=== PATIENT | male | born 1965 | race Caucasian/White ===

== ENCOUNTER 2018-11-30 08:41 | Outpatient (RCR) | payer MEDICAID, SELFPAY ==
[2018-11-30 09:23] VITALS: BP 163/90; PULSE 98; RESP 20; TEMP 36.5
--- NOTE | 2018-11-30 19:49 | PCM.CONHBO ---
(1) Chronic osteomyelitis involving ankle and foot Status: Chronic Current Visit: Yes Code(s): M86.679 - Other chronic osteomyelitis, unspecified ankle and foot (2) Type 2 diabetes mellitus Status: Acute Current Visit: Yes Code(s): E11.9 - Type 2 diabetes mellitus without complications (3) Diabetic foot ulcer associated with type 2 diabetes mellitus Status: Acute Current Visit: Yes Code(s): E11.621 - Type 2 diabetes mellitus with foot ulcer; L97.509 - Non-pressure chronic ulcer of other part of unspecified foot with unspecified severity History of Present Illness Presenting Chief Complaint: Hyperbaric oxygen consult for chronic refractory osteomyelitis right foot/ankle. Recurrent diabetic foot ulcer. The patient is a 53 year old M who [facility] the possibility of initiating hyperbaric oxygen therapy for treatment of chronic refractory osteomyelitis of his right foot and history of diabetic foot ulcer. Had been following up with his podiatry for wound care and had a 3-month hyperbaric oxygen treatment at [facility]. He had done well with hyperbaric oxygen however noted recurrence of his ulcer about 2 weeks ago and there is concern for refractory osteomyelitis. Plan is for repeat hyperbaric oxygen treatment to optimize wound healing. He did well with hyperbaric oxygen in the past. No vision/hearing concerns. He denies history of heart along disease. He also denies tobacco abuse. Past Medical History Chronic Problems Chronic osteomyelitis involving ankle and foot (Chronic) Allergies/Adverse Reactions: Allergies iodine Allergy (Verified 11/30/18 09:59) Other Home Medications: Ambulatory Orders Medication Instructions Recorded Amlodipine [Norvasc] 5 mg PO DAILY 11/30/18 Glimepiride [Amaryl] 4 mg PO TID 11/30/18 Losartan Potassium [Cozaar] 100 mg PO DAILY 11/30/18 Metformin HCl 500 mg PO TID 11/30/18 Smoking Status: Never smoker Review of Systems Constitutional: Denies: Anorexia, Chills, Fever Eyes: Denies: Blurred vision, Pain, Redness HEENT: Denies: Difficulty Swallowing Cardiovascular: Denies: Chest Pain, Chest Tightness Respiratory: Denies: Hemoptysis Gastrointestinal: Denies: Abdominal Pain, Hematemesis, Vomiting Genitourinary: Denies: Hematuria Skin: Denies: Jaundice - Physical Exam Vital Signs Temp Pulse Resp BP 97.7 F L 98 20 H 163/90 H 11/30/18 09:23 11/30/18 09:23 11/30/18 09:23 11/30/18 09:23 General: Alert, Oriented x3, Cooperative, No apparent distress HEENT: Atraumatic, Normocephalic Oral: Moist Mucosa Neck: Supple Lungs: Normal air movement Cardiovascular: Regular rate, Regular Rhythm, Normal S1, Normal S2 Abdomen: Soft, Non Tender, Obese Extremities: No cyanosis Skin: Ulcer/ Wound Wound Measurements and Assessment WC - Nurse 1 - General Ulcer Measurement Start: 11/30/18 09:20 Freq: Status: Active Protocol: Activity Type Activity Date Activity User E-Sign Co-Sign Detail Recorded Client Recorded Date Recorded By Document 11/30/18 09:23 RB [id number] 11/30/18 09:26 RB 11/30/18 09:23 Wound Center Nurse 1 [Ulcer Assessment] 1. R lateral foot -Combined with other wound No -Current Size (cm) - Length 2.9 -Current Size (cm) - Width 3.4 -Current Size (cm) - Depth 0.2 -Total Square Cm 9.86 -Photo Taken Yes -Tunneling No -Undermining/Tunneling Yes -Undermining/Tunneling Starts (O' 7 clock) -Undermining/Tunneling Ends (O'clock) 10 -Maximum Distance (cm) 0.2 -Circular Undermining No -Exudate Amt Small -Exudate Type Serosanguineous -Wound Margin Distinct, Outline Attached -Granulation Amt Medium (34-66%) -Granulation Quality [place] Red -Slough/Fibrin Yes -Necrosis Amt Small (1-33%) -Necrotic Tissue Type Adherent Slough -Structure Exposed N/A -Texture (Carri-wound Skin Appearance) Assessed Callus -Moisture (Carri-wound Skin Appearance Assessed ) -Color (Carri-wound Skin Appearance) Assessed -Temperature (Carri-wound Skin No Abnormality Appearance) (Pt Warm) -Tenderness on Palpation (Carri-wound No Skin Appearance) -Ulcer Cleansing Wound Cleanser -Foul Odor after Cleansing No -Anesthetic Used 4% Lidocaine Solution [Edema Assessment] -Lower Limb Edema Present Yes -Right Calf (cm) 43 -Right Ankle (cm) 28.5 -Left Calf (cm) 42 -Left Ankle (cm) 27 WC - Nurse 2 - General Ulcer CM Notes Start: 11/30/18 09:20 Freq: Status: Active Protocol: Activity Type Activity Date Activity User E-Sign Co-Sign Detail Recorded Client Recorded Date Recorded By Document 11/30/18 09:58 MW [id number] 11/30/18 10:10 MW 11/30/18 09:58 Wound Center Nurse 2 [Procedure/Treatment] 1. R lateral foot -Time 09:58 -Correct Patient Yes -Correct Side, Site, Position Yes -Correct Procedure Yes -Procedure Performed No -Wound/Ulcer Outcome Not Healed -Bleeding Controlled with NA [See Physician Procedure note for Specifics] Pain Scale: 0-10 Numeric [Pain] -Is Patient Pain Free? Yes Musculoskeletal: No Muscle Wasting Neurological: Cranial nerves II-XII grossly intact Psych/Mental Status: Normal Affect Assessment/Plan Active Problems Chronic osteomyelitis involving ankle and foot (Chronic) Type 2 diabetes mellitus (Acute) Diabetic foot ulcer associated with type 2 diabetes mellitus (Acute) DEANGELO ROMERO is an appropriate candidate for hyperbaric oxygen therapy. Hyperbaric Oxygen Therapy would be an essential adjunct in the resolution and treatment of this patient's presenting problem. This patient has sufficient physiologic and psychological stamina to undergo the rigors of hyperbaric oxygen therapy. As such, I recommend the following: Hyperbaric Oxygen Treatments at 2.0 CARMEN in 100% Oxygen for 90 minutes per treatment, for [40] treatments. I have discussed the possible benefits of hyperbaric oxygen therapy with this patient. I have also presented and described the risks, including: air gas embolism, pneumothorax, central nervous system and pulmonary oxygen toxicity, flash pulmonary edema, hypoglycemia, reversible visual refractive changes, ear and sinus sanjay-trauma, and confinement anxiety. The patient has verbalized understanding of these risks, and is still wanting to undergo hyperbaric oxygen therapy. The patient understands the significant time and transportation commitment involved in daily treatments of up to two hours duration and has stated that they are willing to commit to this therapy. Records requested from prior HBO facility. Patient states that he recently had imaging done. Last HBO session was in August.
--- NOTE | 2018-11-30 19:53 | HBO.CON.PC_ITS ---
(1) Chronic osteomyelitis involving ankle and foot Status: Chronic Current Visit: Yes Code(s): M86.679 - Other chronic osteomyelitis, unspecified ankle and foot (2) Type 2 diabetes mellitus Status: Acute Current Visit: Yes Code(s): E11.9 - Type 2 diabetes mellitus without complications (3) Diabetic foot ulcer associated with type 2 diabetes mellitus Status: Acute Current Visit: Yes Code(s): E11.621 - Type 2 diabetes mellitus with foot ulcer; L97.509 - Non-pressure chronic ulcer of other part of uns pecified foot with unspecified severity History of Present Illness Presenting Chief Complaint: Hyperbaric oxygen consult for chronic refractory osteomyelitis right foot/ankle. Recurrent diabetic foot ulcer. The patient is a 53 year old M who [facility] to evaluate the possibility of initiating hyperbaric oxygen therapy for treatment of chronic refractory osteomyelitis of his right foot and history of diabetic foot ulcer. Had been following up with his podiatry for wound care and had a 3- month hyperbaric oxygen treatment at [facility]. He had done well with hyperbaric oxygen however noted recurrence of his ulcer about 2 weeks ago and there is concern for refractory osteomyelitis. Plan is for repeat hyperbaric oxygen treatment to optimize wound healing. He did well with hyperbaric oxygen in the past. No vision/hearing concerns. He denies history of heart along disease. He also denies tobacco abuse. Past Medical History Chronic Problems Chronic osteomyelitis involving ankle and foot (Chronic) Allergies/Adverse Reactions: Allergies iodine Allergy (Verified 11/30/18 09:59) Other Home Medications: Ambulatory Orders Medication Instructions Recorded Amlodipine [Norvasc] 5 mg PO DAILY 11/30/18 Glimepiride [Amaryl] 4 mg PO TID 11/30/18 Losartan Potassium [Cozaar] 100 mg PO DAILY 11/30/18 Metformin HCl 500 mg PO TID 11/30/18 Smoking Status: Never smoker Review of Systems Constitutional: Denies: Anorexia, Chills, Fever Eyes: Denies: Blurred vision, Pain, Redness HEENT: Denies: Difficulty Swallowing Cardiovascular: Denies: Chest Pain, Chest Tightness Respiratory: Denies: Hemoptysis Gastrointestinal: Denies: Abdominal Pain, Hematemesis, Vomiting Genitourinary: Denies: Hematuria Skin: Denies: Jaundice - Physical Exam Vital Signs Temp Pulse Resp BP 97.7 F L 98 20 H 163/90 H 11/30/18 09:23 11/30/18 09:23 11/30/18 09:23 11/30/18 09:23 General: Alert, Oriented x3, Cooperative, No apparent distress HEENT: Atraumatic, Normocephalic Oral: Moist Mucosa Neck: Supple Lungs: Normal air movement Cardiovascular: Regular rate, Regular Rhythm, Normal S1, Normal S2 Abdomen: Soft, Non Tender, Obese Extremities: No cyanosis Skin: Ulcer/ Wound Wound Measurements and Assessment WC - Nurse 1 - General Ulcer Measurement Start: 11/30/18 09:20 Freq: Status: Active Protocol: Activity Type Activity Date Activity User E-Sign Co-Sign Detail Recorded Client Recorded Date Recorded By Document 11/30/18 09:23 RB [id number] 11/30/18 09:26 RB 11/30/18 09:23 Wound Center Nurse 1 [Ulcer Assessment] 1. R lateral foot -Combined with other wound No -Current Size (cm) - Length 2.9 -Current Size (cm) - Width 3.4 -Current Size (cm) - Depth 0.2 -Total Square Cm 9.86 -Photo Taken Yes -Tunneling No -Undermining/Tunneling Yes -Undermining/Tunneling Starts (O' 7 clock) -Undermining/Tunneling Ends (O'clock) 10 -Maximum Distance (cm) 0.2 -Circular Undermining No -Exudate Amt Small -Exudate Type Serosanguineous -Wound Margin Distinct, Outline Attached -Granulation Amt Medium (34-66%) -Granulation Quality [place] Red -Slough/Fibrin Yes -Necrosis Amt Small (1-33%) -Necrotic Tissue Type Adherent Slough -Structure Exposed N/A -Texture (Carri-wound Skin Appearance) Assessed Callus -Moisture (Carri-wound Skin Appearance Assessed ) -Color (Carri-wound Skin Appearance) Assessed -Temperature (Carri-wound Skin No Abnormality Appearance) (Pt Warm) -Tenderness on Palpation (Carri-wound No Skin Appearance) -Ulcer Cleansing Wound Cleanser -Foul Odor after Cleansing No -Anesthetic Used 4% Lidocaine Solution [Edema Assessment] -Lower Limb Edema Present Yes -Right Calf (cm) 43 -Right Ankle (cm) 28.5 -Left Calf (cm) 42 -Left Ankle (cm) 27 WC - Nurse 2 - General Ulcer CM Notes Start: 11/30/18 09:20 Freq: Status: Active Protocol: Activity Type Activity Date Activity User E-Sign Co-Sign Detail Recorded Client Recorded Date Recorded By Document 11/30/18 09:58 MW [id number] 11/30/18 10:10 MW 11/30/18 09:58 Wound Center Nurse 2 [Procedure/Treatment] 1. R lateral foot -Time 09:58 -Correct Patient Yes -Correct Side, Site, Position Yes -Correct Procedure Yes -Procedure Performed No -Wound/Ulcer Outcome Not Healed -Bleeding Controlled with NA [See Physician Procedure note for Specifics] Pain Scale: 0-10 Numeric [Pain] -Is Patient Pain Free? Yes Musculoskeletal: No Muscle Wasting Neurological: Cranial nerves II-XII grossly intact Psych/Mental Status: Normal Affect Assessment/Plan Active Problems Chronic osteomyelitis involving ankle and foot (Chronic) Type 2 diabetes mellitus (Acute) Diabetic foot ulcer associated with type 2 diabetes mellitus (Acute) DEANGELO ROMERO is an appropriate candidate for hyperbaric oxygen therapy. Hyperbaric Oxygen Therapy would be an essential adjunct in the resolution and treatment of this patient's presenting problem. This patient has sufficient physiologic and psychological stamina to undergo the rigors of hyperbaric oxygen therapy. As such, I recommend the following: Hyperbaric Oxygen Treatments at 2.0 CARMEN in 100% Oxygen for 90 minutes per treatment, for [40] treatments. I have discussed the possible benefits of hyperbaric oxygen therapy with this patient. I have also presented and described the risks, including: air gas embolism, pneumothorax, central nervous system and pulmonary oxygen toxicity, flash pulmonary edema, hypoglycemia, reversible visual refractive changes, ear and sinus sanjay-trauma, and confinement anxiety. The patient has verbalized understanding of these risks, and is still wanting to undergo hyperbaric oxygen therapy. The patient understands the significant time and transportation commitment involved in daily treatments of up to two hours duration and has stated that they are willing to commit to this therapy. Records requested from prior HBO facility. Patient states that he recently had imaging done. Last HBO session was in August.
== END 2018-12-15 23:59 ==
LOC: WC 08:41
PROVIDERS: Family Provider Family Medicine; PCP Family Medicine; Visit Provider Internal Medicine
DX: E11.621 Type 2 diabetes mellitus with foot ulcer (principal); E11.69 Type 2 diabetes mellitus with other specified complication; M86.671 Other chronic osteomyelitis, right ankle and foot; L97.519 Non-pressure chronic ulcer of other part of right foot with unspecified severity
CPT/HCPCS: 99203; G0463

== ENCOUNTER 2019-01-12 10:00 | Outpatient (RCR) | payer MEDICAID, SELFPAY ==
[2018-12-16 01:24] VITALS: BP 163/90; PULSE 98; RESP 20; TEMP 36.5
[2019-01-01 08:35] LABS: Bedside Glucose 175 mg/dL (70-110)
[2019-01-01 08:48] VITALS: BP 160/91; BP 163/70; PULSE 118; PULSE 86; RESP 16; RESP 18; TEMP 35.6; TEMP 36.3
--- NOTE | 2019-01-01 09:38 | PCM.HBO.PN ---
History of Present Illness Date of Service: 01/01/19 Presenting Chief Complaint: Hyperbaric oxygen consult for chronic refractory osteomyelitis right foot/ankle. Recurrent diabetic foot ulcer. DEANGELO ROMERO is a 53 year old currently undergoing hyperbaric oxygen therapy for Chronic osteomyelitis involving right ankle and right foot. Type 2 diabetes mellitus also complicates prognosis. Progress: Today is the first session of 40 planned hyperbaric oxygen therapy sessions. Tolerance of hyperbaric oxygen therapy: Hyperbaric oxygen therapy was administered as per the facility's protocol. The patient tolerated hyperbaric oxygen therapy well, without complaints or complications. Upon emergence from the hyperbaric chamber, the patient's vital signs remained stable. He was discharged in good condition. See documented blood glucose levels. Past Medical History Chronic Problems Chronic osteomyelitis involving ankle and foot (Chronic) Allergies/Adverse Reactions: Allergies iodine Allergy (Verified 11/30/18 09:59) Other Home Medications: Ambulatory Orders Medication Instructions Recorded Amlodipine [Norvasc] 5 mg PO DAILY 11/30/18 Glimepiride [Amaryl] 4 mg PO TID 11/30/18 Losartan Potassium [Cozaar] 100 mg PO DAILY 11/30/18 Metformin HCl 500 mg PO TID 11/30/18 Smoking Status: Never smoker Physical Exam Vital Signs Temp Pulse Resp BP 96.0 F L 118 H 18 160/91 H 01/01/19 08:48 01/01/19 08:48 01/01/19 08:48 01/01/19 08:48 General: Alert, Oriented x3, Cooperative, No apparent distress HEENT: Atraumatic, TM's Clear - Some nonobstructing cerumen noted to bilateral ear canals. Lungs: Clear to auscultation, Normal air movement Cardiovascular: Regular rate, Regular Rhythm Psych/Mental Status: Normal Affect, Appropriate, Alert and oriented to time, place, person, mood and affect Assessment/Plan The patient appears to be tolerating hyperbaric oxygen therapy well, which will be continued as per the patient's medical plan.
[2019-01-01 11:00] LABS: Bedside Glucose 138 mg/dL (70-110)
[2019-01-02 08:16] LABS: Bedside Glucose 200 mg/dL (70-110)
[2019-01-02 08:26] VITALS: BP 152/74; BP 166/78; PULSE 83; PULSE 98; RESP 16; RESP 18; TEMP 36.1; TEMP 36.3
[2019-01-02 10:06] LABS: Bedside Glucose 144 mg/dL (70-110)
--- NOTE | 2019-01-02 14:28 | PCM.HBO.PN ---
History of Present Illness Date of Service: 01/02/19 Presenting Chief Complaint: Hyperbaric oxygen consult for chronic refractory osteomyelitis right foot/ankle. Recurrent diabetic foot ulcer. DEANGELO ROMERO is a 53 year old currently undergoing hyperbaric oxygen therapy for chronic osteomyelitis involving right ankle and right foot. Type 2 diabetes mellitus also complicates prognosis. Progress: Today is the 2nd session of 40 planned hyperbaric oxygen therapy sessions. Tolerance of hyperbaric oxygen therapy: Hyperbaric oxygen therapy was administered as per the facility's protocol. The patient tolerated hyperbaric oxygen therapy well, without complaints or complications. Upon emergence from the hyperbaric chamber, the patient's vital signs remained stable. He was discharged in good condition. See documented blood glucose levels. The hyperbaric oxygen therapy session was administered at 2 rosetta, requiring no air breaks. Past Medical History Chronic Problems Chronic osteomyelitis involving ankle and foot (Chronic) Allergies/Adverse Reactions: Allergies iodine Allergy (Verified 11/30/18 09:59) Other Home Medications: Ambulatory Orders Medication Instructions Recorded Amlodipine [Norvasc] 5 mg PO DAILY 11/30/18 Glimepiride [Amaryl] 4 mg PO TID 11/30/18 Losartan Potassium [Cozaar] 100 mg PO DAILY 11/30/18 Metformin HCl 500 mg PO TID 11/30/18 Smoking Status: Never smoker Physical Exam Vital Signs Temp Pulse Resp BP 97.3 F L 98 18 166/78 H 01/02/19 08:26 01/02/19 08:26 01/02/19 08:26 01/02/19 08:26 General: Alert, Oriented x3, Cooperative, No apparent distress, Well developed, Well nourished HEENT: Atraumatic, PERRLA, EOMI, Normocephalic Lungs: Normal air movement Psych/Mental Status: Normal Affect, Appropriate, Alert and oriented to time, place, person, mood and affect Assessment/Plan The patient appears to be tolerating hyperbaric oxygen therapy well, which will be continued as per the patient's medical plan.
[2019-01-03 07:55] LABS: Bedside Glucose 232 mg/dL (70-110)
--- NOTE | 2019-01-03 08:17 | PCM.HBO.PN ---
History of Present Illness Date of Service: 01/03/19 Presenting Chief Complaint: Hyperbaric oxygen consult for chronic refractory osteomyelitis right foot/ankle. Recurrent diabetic foot ulcer. DEANGELO ROMERO is a 53 year old currently undergoing hyperbaric oxygen therapy for chronic osteomyelitis involving right ankle and right foot. Type 2 diabetes mellitus also complicates prognosis. Progress: Today is the 3rd session of 40 planned hyperbaric oxygen therapy sessions. Tolerance of hyperbaric oxygen therapy: Hyperbaric oxygen therapy was administered as per the facility's protocol. The patient tolerated hyperbaric oxygen therapy well, without complaints or complications. Upon emergence from the hyperbaric chamber, the patient's vital signs remained stable. He was discharged in good condition. See documented blood glucose levels. The hyperbaric oxygen therapy session was administered at 2 rosetta, requiring no air breaks. Past Medical History Chronic Problems Chronic osteomyelitis involving ankle and foot (Chronic) Allergies/Adverse Reactions: Allergies iodine Allergy (Verified 11/30/18 09:59) Other Home Medications: Ambulatory Orders Medication Instructions Recorded Amlodipine [Norvasc] 5 mg PO DAILY 11/30/18 Glimepiride [Amaryl] 4 mg PO TID 11/30/18 Losartan Potassium [Cozaar] 100 mg PO DAILY 11/30/18 Metformin HCl 500 mg PO TID 11/30/18 Smoking Status: Never smoker Physical Exam Vital Signs Temp Pulse Resp BP 97.3 F L 98 18 166/78 H 01/02/19 08:26 01/02/19 08:26 01/02/19 08:26 01/02/19 08:26 General: Alert, Oriented x3, Cooperative, No apparent distress HEENT: Atraumatic, TM's Clear - cerumen present but not completely obstructing view Lungs: Clear to auscultation, Normal air movement Cardiovascular: Regular rate, Regular Rhythm Psych/Mental Status: Normal Affect, Appropriate, Alert and oriented to time, place, person, mood and affect Assessment/Plan The patient appears to be tolerating hyperbaric oxygen therapy well, which will be continued as per the patient's medical plan.
[2019-01-03 08:20] VITALS: BP 157/72; BP 159/85; PULSE 102; PULSE 82; RESP 16; RESP 18; TEMP 36.6; TEMP 36.7
[2019-01-03 10:11] LABS: Bedside Glucose 136 mg/dL (70-110)
[2019-01-04 07:56] LABS: Bedside Glucose 201 mg/dL (70-110)
--- NOTE | 2019-01-04 08:21 | PCM.HBO.PN ---
History of Present Illness Date of Service: 01/04/19 Presenting Chief Complaint: Hyperbaric oxygen consult for chronic refractory osteomyelitis right foot/ankle. Recurrent diabetic foot ulcer. DEANGELO ROMERO is a 53 year old currently undergoing hyperbaric oxygen therapy for chronic osteomyelitis involving right ankle and right foot. Type 2 diabetes mellitus also complicates prognosis. Progress: Today is the 4th session of 40 planned hyperbaric oxygen therapy sessions. Tolerance of hyperbaric oxygen therapy: Hyperbaric oxygen therapy was administered as per the facility's protocol. The patient tolerated hyperbaric oxygen therapy well, without complaints or complications. Upon emergence from the hyperbaric chamber, the patient's vital signs remained stable. He was discharged in good condition. See documented blood glucose levels. The hyperbaric oxygen therapy session was administered at 2 rosetta, requiring no air breaks. Past Medical History Chronic Problems Chronic osteomyelitis involving ankle and foot (Chronic) Allergies/Adverse Reactions: Allergies iodine Allergy (Verified 11/30/18 09:59) Other Home Medications: Ambulatory Orders Medication Instructions Recorded Amlodipine [Norvasc] 5 mg PO DAILY 11/30/18 Glimepiride [Amaryl] 4 mg PO TID 11/30/18 Losartan Potassium [Cozaar] 100 mg PO DAILY 11/30/18 Metformin HCl 500 mg PO TID 11/30/18 Smoking Status: Never smoker Physical Exam Vital Signs Temp Pulse Resp BP 98.0 F 102 H 18 159/85 H 01/03/19 08:20 01/03/19 08:20 01/03/19 08:20 01/03/19 08:20 General: Alert, Oriented x3, Cooperative, No apparent distress HEENT: Atraumatic, TM's Clear - rigt ear canal with partially obstructing cerumen Lungs: Clear to auscultation, Normal air movement Cardiovascular: Regular rate, Regular Rhythm Psych/Mental Status: Normal Affect, Appropriate Assessment/Plan The patient appears to be tolerating hyperbaric oxygen therapy well, which will be continued as per the patient's medical plan.
[2019-01-04 08:22] VITALS: BP 154/72; BP 160/77; PULSE 87; PULSE 94; RESP 16; RESP 18; TEMP 36.8; TEMP 37.1
[2019-01-04 10:21] LABS: Bedside Glucose 128 mg/dL (70-110)
[2019-01-05 08:16] LABS: Bedside Glucose 226 mg/dL (70-110)
[2019-01-05 08:25] VITALS: BP 152/79; BP 157/74; PULSE 80; PULSE 93; RESP 16; TEMP 36.2; TEMP 36.8
[2019-01-05 10:06] LABS: Bedside Glucose 163 mg/dL (70-110)
--- NOTE | 2019-01-05 11:03 | PCM.HBO.PN ---
History of Present Illness Date of Service: 01/05/19 Presenting Chief Complaint: Hyperbaric oxygen consult for chronic refractory osteomyelitis right foot/ankle. Recurrent diabetic foot ulcer. DEANGELO ROMERO is a 53 year old currently undergoing hyperbaric oxygen therapy for chronic osteomyelitis involving right ankle and right foot. Type 2 diabetes mellitus also complicates prognosis. Progress: Today is the 5th session of 40 planned hyperbaric oxygen therapy sessions. Tolerance of hyperbaric oxygen therapy: Hyperbaric oxygen therapy was administered as per the facility's protocol. The patient tolerated hyperbaric oxygen therapy well, without complaints or complications. Upon emergence from the hyperbaric chamber, the patient's vital signs remained stable. He was discharged in good condition. See documented blood glucose levels. The hyperbaric oxygen therapy session was administered at 2 rosetta, requiring no air breaks. Past Medical History Chronic Problems Chronic osteomyelitis involving ankle and foot (Chronic) Allergies/Adverse Reactions: Allergies iodine Allergy (Verified 11/30/18 09:59) Other Home Medications: Ambulatory Orders Medication Instructions Recorded Amlodipine [Norvasc] 5 mg PO DAILY 11/30/18 Glimepiride [Amaryl] 4 mg PO TID 11/30/18 Losartan Potassium [Cozaar] 100 mg PO DAILY 11/30/18 Metformin HCl 500 mg PO TID 11/30/18 Smoking Status: Never smoker Tobacco Use: Non-smoker Alcohol: None Drugs: None Physical Exam Vital Signs Temp Pulse Resp BP 98.2 F 93 16 157/74 H 01/05/19 08:25 01/05/19 08:25 01/05/19 08:25 01/05/19 08:25 General: Alert, Oriented x3, Cooperative, No apparent distress Psych/Mental Status: Normal Affect, Appropriate Assessment/Plan Active Problems Chronic osteomyelitis involving ankle and foot (Chronic) Type 2 diabetes mellitus (Acute) Diabetic foot ulcer associated with type 2 diabetes mellitus (Acute) The patient appears to be tolerating hyperbaric oxygen therapy well, which will be continued as per the patient's medical plan.
[2019-01-08 07:50] LABS: Bedside Glucose 219 mg/dL (70-110)
[2019-01-08 08:20] VITALS: BP 164/85; BP 166/71; PULSE 81; PULSE 85; RESP 16; TEMP 36.4; TEMP 36.6
[2019-01-08 10:01] LABS: Bedside Glucose 162 mg/dL (70-110)
--- NOTE | 2019-01-08 23:43 | PCM.HBO.PN ---
History of Present Illness Date of Service: 01/08/19 Presenting Chief Complaint: Hyperbaric oxygen consult for chronic refractory osteomyelitis right foot/ankle. Recurrent diabetic foot ulcer. DEANGELO ROMERO is a 53 year old currently undergoing hyperbaric oxygen therapy for chronic osteomyelitis involving right ankle and right foot. Type 2 diabetes mellitus also complicates prognosis. Progress: Today is the 6th session of 40 planned hyperbaric oxygen therapy sessions. Tolerance of hyperbaric oxygen therapy: Hyperbaric oxygen therapy was administered as per the facility's protocol. The patient tolerated hyperbaric oxygen therapy well, without complaints or complications. Upon emergence from the hyperbaric chamber, the patient's vital signs remained stable. He was discharged in good condition. See documented blood glucose levels. The hyperbaric oxygen therapy session was administered at 2 rosetta, requiring no air breaks. His glucose before the procedure was 219 and after the procedure, it was 162. Past Medical History Chronic Problems Chronic osteomyelitis involving ankle and foot (Chronic) Allergies/Adverse Reactions: Allergies iodine Allergy (Verified 11/30/18 09:59) Other Home Medications: Ambulatory Orders Medication Instructions Recorded Amlodipine [Norvasc] 5 mg PO DAILY 11/30/18 Glimepiride [Amaryl] 4 mg PO TID 11/30/18 Losartan Potassium [Cozaar] 100 mg PO DAILY 11/30/18 Metformin HCl 500 mg PO TID 11/30/18 Smoking Status: Never smoker Tobacco Use: Non-smoker Alcohol: None Drugs: None Physical Exam Vital Signs Temp Pulse Resp BP 97.8 F 85 16 166/71 H 01/08/19 08:20 01/08/19 08:20 01/08/19 08:20 01/08/19 08:20
[2019-01-09 07:51] LABS: Bedside Glucose 217 mg/dL (70-110)
[2019-01-09 08:12] VITALS: BP 151/72; BP 163/84; PULSE 78; PULSE 84; RESP 16; TEMP 36.4; TEMP 36.7
[2019-01-09 10:01] LABS: Bedside Glucose 145 mg/dL (70-110)
--- NOTE | 2019-01-09 10:26 | PCM.HBO.PN ---
History of Present Illness Date of Service: 01/09/19 Presenting Chief Complaint: Hyperbaric oxygen consult for chronic refractory osteomyelitis right foot/ankle. Recurrent diabetic foot ulcer. DEANGELO ROMERO is a 53 year old currently undergoing hyperbaric oxygen therapy for chronic osteomyelitis involving right ankle and right foot. Type 2 diabetes mellitus also complicates prognosis. Progress: Today is the 7th session of 40 planned hyperbaric oxygen therapy sessions. Tolerance of hyperbaric oxygen therapy: Hyperbaric oxygen therapy was administered as per the facility's protocol. The patient tolerated hyperbaric oxygen therapy well, without complaints or complications. Upon emergence from the hyperbaric chamber, the patient's vital signs remained stable. He was discharged in good condition. See documented blood glucose levels. The hyperbaric oxygen therapy session was administered at 2 rosetta, requiring no air breaks. His glucose before the procedure was 217 and after the procedure, it was 145. Past Medical History Chronic Problems Chronic osteomyelitis involving ankle and foot (Chronic) Allergies/Adverse Reactions: Allergies iodine Allergy (Verified 11/30/18 09:59) Other Home Medications: Ambulatory Orders Medication Instructions Recorded Amlodipine [Norvasc] 5 mg PO DAILY 11/30/18 Glimepiride [Amaryl] 4 mg PO TID 11/30/18 Losartan Potassium [Cozaar] 100 mg PO DAILY 11/30/18 Metformin HCl 500 mg PO TID 11/30/18 Smoking Status: Never smoker Tobacco Use: Non-smoker Alcohol: None Drugs: None Physical Exam Vital Signs Temp Pulse Resp BP 98.0 F 84 16 151/72 H 01/09/19 08:12 01/09/19 08:12 01/09/19 08:12 01/09/19 08:12 General: Alert, Oriented x3, Cooperative, No apparent distress, Well developed, Well nourished HEENT: Atraumatic, PERRLA, EOMI, Normocephalic Lungs: Normal air movement Psych/Mental Status: Normal Affect, Appropriate, Alert and oriented to time, place, person, mood and affect Assessment/Plan The patient appears to be tolerating hyperbaric oxygen therapy well, which will be continued as per the patient's medical plan.
[2019-01-10 07:56] LABS: Bedside Glucose 229 mg/dL (70-110)
[2019-01-10 08:30] VITALS: BP 155/80; BP 159/80; PULSE 103; PULSE 85; RESP 18; RESP 20; TEMP 36.5; TEMP 36.8
[2019-01-10 10:00] LABS: Bedside Glucose 173 mg/dL (70-110)
--- NOTE | 2019-01-10 10:17 | PCM.HBO.PN ---
History of Present Illness Date of Service: 01/10/19 Presenting Chief Complaint: Hyperbaric oxygen consult for chronic refractory osteomyelitis right foot/ankle. Recurrent diabetic foot ulcer. DEANGELO ROMERO is a 53 year old currently undergoing hyperbaric oxygen therapy for chronic osteomyelitis involving right ankle and right foot. Type 2 diabetes mellitus also complicates prognosis. Progress: Today is the 8th session of 40 planned hyperbaric oxygen therapy sessions. Tolerance of hyperbaric oxygen therapy: Hyperbaric oxygen therapy was administered as per the facility's protocol. The patient tolerated hyperbaric oxygen therapy well, without complaints or complications. Upon emergence from the hyperbaric chamber, the patient's vital signs remained stable. He was discharged in good condition. See documented blood glucose levels. The hyperbaric oxygen therapy session was administered at 2 rosetta, requiring no air breaks. Past Medical History Chronic Problems Chronic osteomyelitis involving ankle and foot (Chronic) Allergies/Adverse Reactions: Allergies iodine Allergy (Verified 11/30/18 09:59) Other Home Medications: Ambulatory Orders Medication Instructions Recorded Amlodipine [Norvasc] 5 mg PO DAILY 11/30/18 Glimepiride [Amaryl] 4 mg PO TID 11/30/18 Losartan Potassium [Cozaar] 100 mg PO DAILY 11/30/18 Metformin HCl 500 mg PO TID 11/30/18 Smoking Status: Never smoker Tobacco Use: Non-smoker Alcohol: None Drugs: None Physical Exam Vital Signs Temp Pulse Resp BP 98.2 F 103 H 20 H 155/80 H 01/10/19 08:30 01/10/19 08:30 01/10/19 08:30 01/10/19 08:30 General: Alert, Oriented x3, Cooperative, No apparent distress HEENT: Atraumatic, TM's Clear Lungs: Clear to auscultation, Normal air movement Cardiovascular: Regular rate, Regular Rhythm Psych/Mental Status: Normal Affect, Appropriate, Alert and oriented to time, place, person, mood and affect Assessment/Plan The patient appears to be tolerating hyperbaric oxygen therapy well, which will be continued as per the patient's medical plan.
[2019-01-11 07:46] LABS: Bedside Glucose 189 mg/dL (70-110)
[2019-01-11 08:24] VITALS: BP 149/77; BP 151/78; PULSE 79; PULSE 84; RESP 18; TEMP 36.3; TEMP 36.6
--- NOTE | 2019-01-11 08:27 | PCM.HBO.PN ---
History of Present Illness Date of Service: 01/11/19 Presenting Chief Complaint: Hyperbaric oxygen consult for chronic refractory osteomyelitis right foot/ankle. Recurrent diabetic foot ulcer. DEANGELO ROMERO is a 53 year old currently undergoing hyperbaric oxygen therapy for chronic osteomyelitis involving right ankle and right foot. Type 2 diabetes mellitus also complicates prognosis. Progress: Today is the 9th session of 40 planned hyperbaric oxygen therapy sessions. Tolerance of hyperbaric oxygen therapy: Hyperbaric oxygen therapy was administered as per the facility's protocol. The patient tolerated hyperbaric oxygen therapy well, without complaints or complications. Upon emergence from the hyperbaric chamber, the patient's vital signs remained stable. He was discharged in good condition. See documented blood glucose levels. The hyperbaric oxygen therapy session was administered at 2 rosetta, requiring no air breaks. Past Medical History Chronic Problems Chronic osteomyelitis involving ankle and foot (Chronic) Allergies/Adverse Reactions: Allergies iodine Allergy (Verified 11/30/18 09:59) Other Home Medications: Ambulatory Orders Medication Instructions Recorded Amlodipine [Norvasc] 5 mg PO DAILY 11/30/18 Glimepiride [Amaryl] 4 mg PO TID 11/30/18 Losartan Potassium [Cozaar] 100 mg PO DAILY 11/30/18 Metformin HCl 500 mg PO TID 11/30/18 Smoking Status: Never smoker Tobacco Use: Non-smoker Alcohol: None Drugs: None Physical Exam Vital Signs Temp Pulse Resp BP 98.2 F 103 H 20 H 155/80 H 01/10/19 08:30 01/10/19 08:30 01/10/19 08:30 01/10/19 08:30 General: Alert, Oriented x3, Cooperative, No apparent distress HEENT: Atraumatic, TM's Clear Lungs: Clear to auscultation, Normal air movement Cardiovascular: Regular rate, Regular Rhythm Psych/Mental Status: Normal Affect, Appropriate, Alert and oriented to time, place, person, mood and affect Assessment/Plan The patient appears to be tolerating hyperbaric oxygen therapy well, which will be continued as per the patient's medical plan.
[2019-01-11 10:05] LABS: Bedside Glucose 119 mg/dL (70-110)
[2019-01-12 10:10] LABS: Bedside Glucose 160 mg/dL (70-110)
[2019-01-12 10:27] VITALS: BP 161/81; BP 162/80; PULSE 82; PULSE 88; RESP 16; TEMP 36.4; TEMP 36.8
[2019-01-12 12:21] LABS: Bedside Glucose 106 mg/dL (70-110)
--- NOTE | 2019-01-12 15:09 | PCM.HBO.PN ---
History of Present Illness Date of Service: 01/12/19 Presenting Chief Complaint: Hyperbaric oxygen consult for chronic refractory osteomyelitis right foot/ankle. Recurrent diabetic foot ulcer. DEANGELO ROMERO is a 53 year old currently undergoing hyperbaric oxygen therapy for chronic osteomyelitis involving right ankle and right foot. Type 2 diabetes mellitus also complicates prognosis. Progress: Today is the 10th session of 40 planned hyperbaric oxygen therapy sessions. Tolerance of hyperbaric oxygen therapy: Hyperbaric oxygen therapy was administered as per the facility's protocol. The patient tolerated hyperbaric oxygen therapy well, without complaints or complications. Upon emergence from the hyperbaric chamber, the patient's vital signs remained stable. He was discharged in good condition. See documented blood glucose levels. The hyperbaric oxygen therapy session was administered at 2 rosetta, requiring no air breaks. Past Medical History Chronic Problems Chronic osteomyelitis involving ankle and foot (Chronic) Allergies/Adverse Reactions: Allergies iodine Allergy (Verified 11/30/18 09:59) Other Home Medications: Ambulatory Orders Medication Instructions Recorded Amlodipine [Norvasc] 5 mg PO DAILY 11/30/18 Glimepiride [Amaryl] 4 mg PO TID 11/30/18 Losartan Potassium [Cozaar] 100 mg PO DAILY 11/30/18 Metformin HCl 500 mg PO TID 11/30/18 Smoking Status: Never smoker Tobacco Use: Non-smoker Alcohol: None Drugs: None Physical Exam Vital Signs Temp Pulse Resp BP 98.3 F 88 16 161/81 H 01/12/19 10:27 01/12/19 10:27 01/12/19 10:27 01/12/19 10:27 General: Alert, Oriented x3, Cooperative, No apparent distress HEENT: Atraumatic, TM's Clear Lungs: Clear to auscultation, Normal air movement Cardiovascular: Regular rate, Regular Rhythm Psych/Mental Status: Normal Affect, Appropriate, Alert and oriented to time, place, person, mood and affect Assessment/Plan The patient appears to be tolerating hyperbaric oxygen therapy well, which will be continued as per the patient's medical plan.
--- NOTE | 2019-01-15 12:31 | PCM.HBO.PN ---
History of Present Illness Date of Service: 01/15/19 Presenting Chief Complaint: Chronic refractory osteomyelitis right foot/ankle. Recurrent diabetic foot ulcer. DEANGELO ROMERO is a 53 year old currently undergoing hyperbaric oxygen therapy for chronic osteomyelitis involving right ankle and right foot. Type 2 diabetes mellitus also complicates prognosis. Progress: Today is the 11th session of 40 planned hyperbaric oxygen therapy sessions. Tolerance of hyperbaric oxygen therapy: Hyperbaric oxygen therapy was administered as per the facility's protocol. The patient tolerated hyperbaric oxygen therapy well, without complaints or complications. Upon emergence from the hyperbaric chamber, the patient's vital signs remained stable. He was discharged in good condition. See documented blood glucose levels. The hyperbaric oxygen therapy session was administered at 2 rosetta, requiring no air breaks. His glucose before the procedure was 237 and after the procedure, it was 159. Past Medical History Chronic Problems Chronic osteomyelitis involving ankle and foot (Chronic) Allergies/Adverse Reactions: Allergies iodine Allergy (Verified 11/30/18 09:59) Other Home Medications: Ambulatory Orders Medication Instructions Recorded Amlodipine [Norvasc] 5 mg PO DAILY 11/30/18 Glimepiride [Amaryl] 4 mg PO TID 11/30/18 Losartan Potassium [Cozaar] 100 mg PO DAILY 11/30/18 Metformin HCl 500 mg PO TID 11/30/18 Smoking Status: Never smoker Tobacco Use: Non-smoker Alcohol: None Drugs: None Physical Exam Vital Signs Temp Pulse Resp BP 98.3 F 88 16 161/81 H 01/12/19 10:27 01/12/19 10:27 01/12/19 10:27 01/12/19 10:27
[2019-01-16 14:31] LABS: Bedside Glucose 252 mg/dL (70-110)
[2019-01-16 14:35] LABS: Bedside Glucose 237 mg/dL (70-110)
--- NOTE | 2019-02-12 18:22 | PCM.HBO.PN ---
History of Present Illness Date of Service: 02/12/19 Presenting Chief Complaint: Chronic refractory osteomyelitis right foot/ankle. Recurrent diabetic foot ulcer. DEANGELO ROMERO is a 53 year old currently undergoing hyperbaric oxygen therapy for chronic osteomyelitis involving right ankle and right foot. Type 2 diabetes mellitus also complicates prognosis. Progress: Today is the 29th session of 40 planned hyperbaric oxygen therapy sessions. Tolerance of hyperbaric oxygen therapy: Hyperbaric oxygen therapy was administered as per the facility's protocol. The patient tolerated hyperbaric oxygen therapy well, without complaints or complications. Upon emergence from the hyperbaric chamber, the patient's vital signs remained stable. He was discharged in good condition. The hyperbaric oxygen therapy session was administered at 2 rosetta, requiring no air breaks. His glucose before the procedure was 187 and after the procedure, it was 198. Past Medical History Chronic Problems Chronic osteomyelitis involving ankle and foot (Chronic) Allergies/Adverse Reactions: Allergies iodine Allergy (Verified 11/30/18 09:59) Other Home Medications: Ambulatory Orders Medication Instructions Recorded Amlodipine [Norvasc] 5 mg PO DAILY 11/30/18 Glimepiride [Amaryl] 4 mg PO TID 11/30/18 Losartan Potassium [Cozaar] 100 mg PO DAILY 11/30/18 Metformin HCl 500 mg PO TID 11/30/18 Smoking Status: Never smoker Tobacco Use: Non-smoker Alcohol: None Drugs: None Physical Exam Vital Signs Temp Pulse Resp BP 98.3 F 88 16 161/81 H 01/12/19 10:27 01/12/19 10:27 01/12/19 10:27 01/12/19 10:27
== END 2019-01-14 23:59 ==
LOC: WC 10:00
PROVIDERS: Family Provider Family Medicine; PCP Family Medicine; Visit Provider Internal Medicine
DX: E11.621 Type 2 diabetes mellitus with foot ulcer (principal); M86.671 Other chronic osteomyelitis, right ankle and foot; E11.69 Type 2 diabetes mellitus with other specified complication; L97.519 Non-pressure chronic ulcer of other part of right foot with unspecified severity
CPT/HCPCS: 82962; 99183; G0277

== ENCOUNTER 2019-02-13 08:00 | Outpatient (RCR) | payer MEDICAID, SELFPAY ==
[2019-01-15 00:56] VITALS: BP 162/80; PULSE 82; RESP 16; TEMP 36.4
[2019-01-15 08:28] VITALS: BP 156/81; PULSE 91; RESP 16; TEMP 36.8
[2019-01-15 10:06] LABS: Bedside Glucose 159 mg/dL (70-110)
[2019-01-16 07:51] LABS: Bedside Glucose 238 mg/dL (70-110)
[2019-01-16 08:14] VITALS: BP 149/80; BP 154/72; PULSE 81; PULSE 86; RESP 16; TEMP 36.3; TEMP 36.4
[2019-01-16 10:05] LABS: Bedside Glucose 162 mg/dL (70-110)
--- NOTE | 2019-01-16 11:27 | PCM.HBO.PN ---
History of Present Illness Date of Service: 01/16/19 Presenting Chief Complaint: Hyperbaric oxygen consult for chronic refractory osteomyelitis right foot/ankle. Recurrent diabetic foot ulcer. DEANGELO ROMERO is a 53 year old currently undergoing hyperbaric oxygen therapy for chronic refractory osteomyelitis right foot/ankle. Recurrent diabetic foot ulcer. Progress: Patient appears to be doing well, and today's hyperbaric oxygen therapy session represents the 12th such session out of a planned 40 sessions. Tolerance of hyperbaric oxygen therapy: Hyperbaric action therapy was administered as per the facility's protocol. Patient tolerated hyperbaric oxygen therapy well, without complaints or complications. Upon emergence from the hyperbaric oxygen chamber, the patient's vital signs remained stable. Patient was discharged in good condition. There were no air breaks. Total treatment time was 106 minutes. The patient's pre-treatment blood sugar was 238. The patient's post-treatment blood sugar was 162. Past Medical History Chronic Problems Chronic osteomyelitis involving ankle and foot (Chronic) Allergies/Adverse Reactions: Allergies iodine Allergy (Verified 11/30/18 09:59) Other Home Medications: Ambulatory Orders Medication Instructions Recorded Amlodipine [Norvasc] 5 mg PO DAILY 11/30/18 Glimepiride [Amaryl] 4 mg PO TID 11/30/18 Losartan Potassium [Cozaar] 100 mg PO DAILY 11/30/18 Metformin HCl 500 mg PO TID 11/30/18 Smoking Status: Never smoker Tobacco Use: Non-smoker Physical Exam Vital Signs Temp Pulse Resp BP 97.4 F L 86 16 149/80 H 01/16/19 08:14 01/16/19 08:14 01/16/19 08:14 01/16/19 08:14 General: Alert, Oriented x3, Cooperative, No apparent distress, Well developed, Well nourished HEENT: Atraumatic, PERRLA, EOMI, Normocephalic Lungs: Normal air movement Psych/Mental Status: Normal Affect, Appropriate, Alert and oriented to time, place, person, mood and affect Assessment/Plan The patient appears to be tolerating hyperbaric oxygen therapy well, which will be continued as per the patient's medical plan.
[2019-01-19 08:16] LABS: Bedside Glucose 196 mg/dL (70-110)
[2019-01-19 08:23] VITALS: BP 155/78; BP 163/79; PULSE 86; PULSE 95; RESP 16; TEMP 36.5; TEMP 37
--- NOTE | 2019-01-19 09:57 | PCM.HBO.PN ---
History of Present Illness Date of Service: 01/19/19 Presenting Chief Complaint: Chronic refractory osteomyelitis right foot/ankle. Recurrent diabetic foot ulcer. DEANGELO ROMERO is a 53 year old currently undergoing hyperbaric oxygen therapy for chronic refractory osteomyelitis right foot/ankle. Recurrent diabetic foot ulcer. Progress: Patient appears to be doing well, and today's hyperbaric oxygen therapy session represents the 12th such session out of a planned 40 sessions. Tolerance of hyperbaric oxygen therapy: Hyperbaric action therapy was administered as per the facility's protocol. Patient tolerated hyperbaric oxygen therapy well, without complaints or complications. Upon emergence from the hyperbaric oxygen chamber, the patient's vital signs remained stable. Patient was discharged in good condition. There were no air breaks. Total treatment time was 106 minutes. The patient's pre-treatment blood sugar was 196. Past Medical History Chronic Problems Chronic osteomyelitis involving ankle and foot (Chronic) Allergies/Adverse Reactions: Allergies iodine Allergy (Verified 11/30/18 09:59) Other Home Medications: Ambulatory Orders Medication Instructions Recorded Amlodipine [Norvasc] 5 mg PO DAILY 11/30/18 Glimepiride [Amaryl] 4 mg PO TID 11/30/18 Losartan Potassium [Cozaar] 100 mg PO DAILY 11/30/18 Metformin HCl 500 mg PO TID 11/30/18 Smoking Status: Never smoker Tobacco Use: Non-smoker Physical Exam Vital Signs Temp Pulse Resp BP 98.6 F 95 16 155/78 H 01/19/19 08:23 01/19/19 08:23 01/19/19 08:23 01/19/19 08:23 Assessment/Plan The patient appears to be tolerating hyperbaric oxygen therapy well, which will be continued as per the patient's medical plan.
[2019-01-19 10:06] LABS: Bedside Glucose 152 mg/dL (70-110)
[2019-01-22 07:46] LABS: Bedside Glucose 215 mg/dL (70-110)
[2019-01-22 08:07] VITALS: BP 152/80; BP 167/85; PULSE 81; PULSE 82; RESP 16; RESP 18; TEMP 36.2; TEMP 36.5
[2019-01-22 09:55] LABS: Bedside Glucose 159 mg/dL (70-110)
--- NOTE | 2019-01-22 11:54 | PCM.HBO.PN ---
History of Present Illness Date of Service: 01/22/19 Presenting Chief Complaint: Chronic refractory osteomyelitis right foot/ankle. Recurrent diabetic foot ulcer. DEANGELO ROMERO is a 53 year old currently undergoing hyperbaric oxygen therapy for chronic refractory osteomyelitis right foot/ankle. Recurrent diabetic foot ulcer. Progress: Patient appears to be doing well, and today's hyperbaric oxygen therapy session represents the 14th such session out of a planned 40 sessions. Tolerance of hyperbaric oxygen therapy: Hyperbaric action therapy was administered as per the facility's protocol. Patient tolerated hyperbaric oxygen therapy well, without complaints or complications. Upon emergence from the hyperbaric oxygen chamber, the patient's vital signs remained stable. Patient was discharged in good condition. Past Medical History Chronic Problems Chronic osteomyelitis involving ankle and foot (Chronic) Allergies/Adverse Reactions: Allergies iodine Allergy (Verified 11/30/18 09:59) Other Home Medications: Ambulatory Orders Medication Instructions Recorded Amlodipine [Norvasc] 5 mg PO DAILY 11/30/18 Glimepiride [Amaryl] 4 mg PO TID 11/30/18 Losartan Potassium [Cozaar] 100 mg PO DAILY 11/30/18 Metformin HCl 500 mg PO TID 11/30/18 Smoking Status: Never smoker Tobacco Use: Non-smoker Physical Exam Vital Signs Temp Pulse Resp BP 97.1 F L 81 18 152/80 H 01/22/19 08:07 01/22/19 08:07 01/22/19 08:07 01/22/19 08:07 General: Alert, Oriented x3, Cooperative, No apparent distress HEENT: Atraumatic, TM's Clear Lungs: Clear to auscultation, Normal air movement Cardiovascular: Regular rate, Regular Rhythm Psych/Mental Status: Normal Affect, Appropriate, Alert and oriented to time, place, person, mood and affect Assessment/Plan The patient appears to be tolerating hyperbaric oxygen therapy well, which will be continued as per the patient's medical plan.
[2019-01-23 07:40] LABS: Bedside Glucose 212 mg/dL (70-110)
[2019-01-23 08:17] VITALS: BP 158/76; BP 165/73; PULSE 77; PULSE 81; RESP 16; TEMP 36.4; TEMP 36.8
[2019-01-23 10:05] LABS: Bedside Glucose 171 mg/dL (70-110)
--- NOTE | 2019-01-23 13:40 | PCM.HBO.PN ---
History of Present Illness Date of Service: 01/23/19 Presenting Chief Complaint: Chronic refractory osteomyelitis right foot/ankle. Recurrent diabetic foot ulcer. DEANGELO ROMERO is a 53 year old currently undergoing hyperbaric oxygen therapy for chronic refractory osteomyelitis right foot/ankle. Recurrent diabetic foot ulcer. Progress: Patient appears to be doing well, and today's hyperbaric oxygen therapy session represents the 15th such session out of a planned 40 sessions. Tolerance of hyperbaric oxygen therapy: Hyperbaric action therapy was administered as per the facility's protocol. Patient tolerated hyperbaric oxygen therapy well, without complaints or complications. Upon emergence from the hyperbaric oxygen chamber, the patient's vital signs remained stable. Patient was discharged in good condition. Patient's blood sugar prior to HBO was 212. The patient's blood sugar following HPI was 171. There were no air breaks. Treatment time was approximately 90 minutes. Past Medical History Chronic Problems Chronic osteomyelitis involving ankle and foot (Chronic) Allergies/Adverse Reactions: Allergies iodine Allergy (Verified 11/30/18 09:59) Other Home Medications: Ambulatory Orders Medication Instructions Recorded Amlodipine [Norvasc] 5 mg PO DAILY 11/30/18 Glimepiride [Amaryl] 4 mg PO TID 11/30/18 Losartan Potassium [Cozaar] 100 mg PO DAILY 11/30/18 Metformin HCl 500 mg PO TID 11/30/18 Smoking Status: Never smoker Tobacco Use: Non-smoker Physical Exam Vital Signs Temp Pulse Resp BP 98.2 F 81 16 165/73 H 01/23/19 08:17 01/23/19 08:17 01/23/19 08:17 01/23/19 08:17 General: Alert, Oriented x3, Cooperative, No apparent distress, Well developed, Well nourished HEENT: Atraumatic, PERRLA, EOMI, Normocephalic Lungs: Normal air movement Psych/Mental Status: Normal Affect, Appropriate, Alert and oriented to time, place, person, mood and affect Assessment/Plan The patient appears to be tolerating hyperbaric oxygen therapy well, which will be continued as per the patient's medical plan.
[2019-01-24 07:46] LABS: Bedside Glucose 198 mg/dL (70-110)
[2019-01-24 08:34] VITALS: BP 151/77; BP 163/79; PULSE 77; PULSE 82; RESP 16; TEMP 36.2; TEMP 36.4
--- NOTE | 2019-01-24 10:10 | PCM.HBO.PN ---
History of Present Illness Date of Service: 01/24/19 Presenting Chief Complaint: Chronic refractory osteomyelitis right foot/ankle. Recurrent diabetic foot ulcer. DEANGELO ROMERO is a 53 year old currently undergoing hyperbaric oxygen therapy for chronic refractory osteomyelitis right foot/ankle. Recurrent diabetic foot ulcer. Progress: Patient appears to be doing well, and today's hyperbaric oxygen therapy session represents the 16th such session out of a planned 40 sessions. Tolerance of hyperbaric oxygen therapy: Hyperbaric action therapy was administered as per the facility's protocol. Patient tolerated hyperbaric oxygen therapy well, without complaints or complications. Upon emergence from the hyperbaric oxygen chamber, the patient's vital signs remained stable. Patient was discharged in good condition. See documented blood glucose levels. There were no air breaks. Treatment time was approximately 90 minutes. Past Medical History Chronic Problems Chronic osteomyelitis involving ankle and foot (Chronic) Allergies/Adverse Reactions: Allergies iodine Allergy (Verified 11/30/18 09:59) Other Home Medications: Ambulatory Orders Medication Instructions Recorded Amlodipine [Norvasc] 5 mg PO DAILY 11/30/18 Glimepiride [Amaryl] 4 mg PO TID 11/30/18 Losartan Potassium [Cozaar] 100 mg PO DAILY 11/30/18 Metformin HCl 500 mg PO TID 11/30/18 Smoking Status: Never smoker Tobacco Use: Non-smoker Physical Exam Vital Signs Temp Pulse Resp BP 97.1 F L 82 16 151/77 H 01/24/19 08:34 01/24/19 08:34 01/24/19 08:34 01/24/19 08:34 General: Alert, Oriented x3, Cooperative, No apparent distress HEENT: Atraumatic, TM's Clear - left TM slightly injected, patient denies any pain or pressure, not bulging Lungs: Clear to auscultation, Normal air movement Cardiovascular: Regular rate, Regular Rhythm Psych/Mental Status: Normal Affect, Appropriate, Alert and oriented to time, place, person, mood and affect Assessment/Plan The patient appears to be tolerating hyperbaric oxygen therapy well, which will be continued as per the patient's medical plan.
[2019-01-24 10:11] LABS: Bedside Glucose 144 mg/dL (70-110)
[2019-01-25 07:45] LABS: Bedside Glucose 210 mg/dL (70-110)
[2019-01-25 08:12] VITALS: BP 152/80; BP 156/75; PULSE 74; PULSE 81; RESP 16; TEMP 36.1; TEMP 36.4
--- NOTE | 2019-01-25 08:20 | PCM.HBO.PN ---
History of Present Illness Date of Service: 01/25/19 Presenting Chief Complaint: Chronic refractory osteomyelitis right foot/ankle. Recurrent diabetic foot ulcer. DEANGELO ROMERO is a 53 year old currently undergoing hyperbaric oxygen therapy for chronic refractory osteomyelitis right foot/ankle. Recurrent diabetic foot ulcer. Progress: Patient appears to be doing well, and today's hyperbaric oxygen therapy session represents the 17th such session out of a planned 40 sessions. Tolerance of hyperbaric oxygen therapy: Hyperbaric action therapy was administered as per the facility's protocol. Patient tolerated hyperbaric oxygen therapy well, without complaints or complications. Upon emergence from the hyperbaric oxygen chamber, the patient's vital signs remained stable. Patient was discharged in good condition. See documented blood glucose levels. There were no air breaks. Treatment time was approximately 90 minutes. Past Medical History Chronic Problems Chronic osteomyelitis involving ankle and foot (Chronic) Allergies/Adverse Reactions: Allergies iodine Allergy (Verified 11/30/18 09:59) Other Home Medications: Ambulatory Orders Medication Instructions Recorded Amlodipine [Norvasc] 5 mg PO DAILY 11/30/18 Glimepiride [Amaryl] 4 mg PO TID 11/30/18 Losartan Potassium [Cozaar] 100 mg PO DAILY 11/30/18 Metformin HCl 500 mg PO TID 11/30/18 Smoking Status: Never smoker Tobacco Use: Non-smoker Physical Exam Vital Signs Temp Pulse Resp BP 96.9 F L 81 16 156/75 H 01/25/19 08:12 01/25/19 08:12 01/25/19 08:12 01/25/19 08:12 General: Alert, Oriented x3, Cooperative, No apparent distress HEENT: Atraumatic, TM's Clear Lungs: Clear to auscultation, Normal air movement Cardiovascular: Regular rate, Regular Rhythm Psych/Mental Status: Normal Affect, Appropriate, Alert and oriented to time, place, person, mood and affect Assessment/Plan The patient appears to be tolerating hyperbaric oxygen therapy well, which will be continued as per the patient's medical plan.
[2019-01-25 10:05] LABS: Bedside Glucose 134 mg/dL (70-110)
[2019-01-26 07:50] LABS: Bedside Glucose 222 mg/dL (70-110)
[2019-01-26 08:17] VITALS: BP 149/83; BP 165/87; PULSE 88; PULSE 99; RESP 16; TEMP 36.6; TEMP 36.7
[2019-01-26 10:06] LABS: Bedside Glucose 160 mg/dL (70-110)
--- NOTE | 2019-01-26 11:03 | PCM.HBO.PN ---
History of Present Illness Date of Service: 01/26/19 Presenting Chief Complaint: Chronic refractory osteomyelitis right foot/ankle. Recurrent diabetic foot ulcer. DEANGELO ROMERO is a 53 year old currently undergoing hyperbaric oxygen therapy for chronic refractory osteomyelitis right foot/ankle. Recurrent diabetic foot ulcer. Progress: Patient appears to be doing well, and today's hyperbaric oxygen therapy session represents the 18th such session out of a planned 40 sessions. Tolerance of hyperbaric oxygen therapy: Hyperbaric action therapy was administered as per the facility's protocol. Patient tolerated hyperbaric oxygen therapy well, without complaints or complications. Upon emergence from the hyperbaric oxygen chamber, the patient's vital signs remained stable. Patient was discharged in good condition. See documented blood glucose levels. There were no air breaks. Treatment time was approximately 90 minutes. Past Medical History Chronic Problems Chronic osteomyelitis involving ankle and foot (Chronic) Allergies/Adverse Reactions: Allergies iodine Allergy (Verified 11/30/18 09:59) Other Home Medications: Ambulatory Orders Medication Instructions Recorded Amlodipine [Norvasc] 5 mg PO DAILY 11/30/18 Glimepiride [Amaryl] 4 mg PO TID 11/30/18 Losartan Potassium [Cozaar] 100 mg PO DAILY 11/30/18 Metformin HCl 500 mg PO TID 11/30/18 Smoking Status: Never smoker Tobacco Use: Non-smoker Physical Exam Vital Signs Temp Pulse Resp BP 98.1 F 99 16 149/83 H 01/26/19 08:17 01/26/19 08:17 01/26/19 08:17 01/26/19 08:17 Assessment/Plan The patient appears to be tolerating hyperbaric oxygen therapy well, which will be continued as per the patient's medical plan.
[2019-01-29 07:46] LABS: Bedside Glucose 191 mg/dL (70-110)
[2019-01-29 08:16] VITALS: BP 156/74; BP 167/85; PULSE 79; PULSE 80; RESP 16; TEMP 36.2
[2019-01-29 10:06] LABS: Bedside Glucose 150 mg/dL (70-110)
--- NOTE | 2019-01-29 14:38 | PCM.HBO.PN ---
History of Present Illness Date of Service: 01/29/19 Presenting Chief Complaint: Chronic refractory osteomyelitis right foot/ankle. Recurrent diabetic foot ulcer. DEANGELO ROMERO is a 53 year old currently undergoing hyperbaric oxygen therapy for chronic osteomyelitis involving right ankle and right foot. Type 2 diabetes mellitus also complicates prognosis. Progress: Today is the 19th session of 40 planned hyperbaric oxygen therapy sessions. Tolerance of hyperbaric oxygen therapy: Hyperbaric oxygen therapy was administered as per the facility's protocol. The patient tolerated hyperbaric oxygen therapy well, without complaints or complications. Upon emergence from the hyperbaric chamber, the patient's vital signs remained stable. He was discharged in good condition. See documented blood glucose levels. The hyperbaric oxygen therapy session was administered at 2 rosetta, requiring no air breaks. His glucose before the procedure was 191 and after the procedure, it was 150. Past Medical History Chronic Problems Chronic osteomyelitis involving ankle and foot (Chronic) Allergies/Adverse Reactions: Allergies iodine Allergy (Verified 11/30/18 09:59) Other Home Medications: Ambulatory Orders Medication Instructions Recorded Amlodipine [Norvasc] 5 mg PO DAILY 11/30/18 Glimepiride [Amaryl] 4 mg PO TID 11/30/18 Losartan Potassium [Cozaar] 100 mg PO DAILY 11/30/18 Metformin HCl 500 mg PO TID 11/30/18 Smoking Status: Never smoker Tobacco Use: Non-smoker Physical Exam Vital Signs Temp Pulse Resp BP 97.1 F L 80 16 156/74 H 01/29/19 08:16 01/29/19 08:16 01/29/19 08:16 01/29/19 08:16
[2019-01-30 07:46] LABS: Bedside Glucose 205 mg/dL (70-110)
[2019-01-30 08:14] VITALS: BP 164/74; BP 165/75; PULSE 78; PULSE 82; RESP 16; TEMP 36.3; TEMP 36.5
[2019-01-30 10:06] LABS: Bedside Glucose 155 mg/dL (70-110)
--- NOTE | 2019-01-30 12:32 | PCM.HBO.PN ---
History of Present Illness Date of Service: 01/30/19 Presenting Chief Complaint: Chronic refractory osteomyelitis right foot/ankle. Recurrent diabetic foot ulcer. DEANGELO ROMERO is a 53 year old currently undergoing hyperbaric oxygen therapy for chronic osteomyelitis involving right ankle and right foot. Type 2 diabetes mellitus also complicates prognosis. Progress: Today is the 20th session of 40 planned hyperbaric oxygen therapy sessions. Tolerance of hyperbaric oxygen therapy: Hyperbaric oxygen therapy was administered as per the facility's protocol. The patient tolerated hyperbaric oxygen therapy well, without complaints or complications. Upon emergence from the hyperbaric chamber, the patient's vital signs remained stable. He was discharged in good condition. See documented blood glucose levels. The hyperbaric oxygen therapy session was administered at 2 rosetta, with no air breaks. Total treatment time was 106 minutes. His glucose before the procedure was 205 and after the procedure, it was 155. Past Medical History Chronic Problems Chronic osteomyelitis involving ankle and foot (Chronic) Allergies/Adverse Reactions: Allergies iodine Allergy (Verified 11/30/18 09:59) Other Home Medications: Ambulatory Orders Medication Instructions Recorded Amlodipine [Norvasc] 5 mg PO DAILY 11/30/18 Glimepiride [Amaryl] 4 mg PO TID 11/30/18 Losartan Potassium [Cozaar] 100 mg PO DAILY 11/30/18 Metformin HCl 500 mg PO TID 11/30/18 Smoking Status: Never smoker Tobacco Use: Non-smoker Physical Exam Vital Signs Temp Pulse Resp BP 97.4 F L 82 16 164/74 H 01/30/19 08:14 01/30/19 08:14 01/30/19 08:14 01/30/19 08:14 General: Alert, Oriented x3, Cooperative, No apparent distress, Well developed, Well nourished HEENT: Atraumatic, PERRLA, EOMI, Normocephalic Psych/Mental Status: Normal Affect, Appropriate, Alert and oriented to time, place, person, mood and affect Assessment/Plan The patient appears to be tolerating hyperbaric oxygen therapy well, which will be continued as per the patient's medical plan.
[2019-01-31 07:45] LABS: Bedside Glucose 201 mg/dL (70-110)
[2019-01-31 08:23] VITALS: BP 155/74; BP 165/83; PULSE 80; PULSE 81; RESP 16; TEMP 36.6; TEMP 36.9
--- NOTE | 2019-01-31 08:38 | PCM.HBO.PN ---
History of Present Illness Date of Service: 01/31/19 Presenting Chief Complaint: Chronic refractory osteomyelitis right foot/ankle. Recurrent diabetic foot ulcer. DEANGELO ROMERO is a 53 year old currently undergoing hyperbaric oxygen therapy for chronic osteomyelitis involving right ankle and right foot. Type 2 diabetes mellitus also complicates prognosis. Progress: Today is the 21th session of 40 planned hyperbaric oxygen therapy sessions. Tolerance of hyperbaric oxygen therapy: Hyperbaric oxygen therapy was administered as per the facility's protocol. The patient tolerated hyperbaric oxygen therapy well, without complaints or complications. Upon emergence from the hyperbaric chamber, the patient's vital signs remained stable. He was discharged in good condition. See documented blood glucose levels. Past Medical History Chronic Problems Chronic osteomyelitis involving ankle and foot (Chronic) Allergies/Adverse Reactions: Allergies iodine Allergy (Verified 11/30/18 09:59) Other Home Medications: Ambulatory Orders Medication Instructions Recorded Amlodipine [Norvasc] 5 mg PO DAILY 11/30/18 Glimepiride [Amaryl] 4 mg PO TID 11/30/18 Losartan Potassium [Cozaar] 100 mg PO DAILY 11/30/18 Metformin HCl 500 mg PO TID 11/30/18 Smoking Status: Never smoker Tobacco Use: Non-smoker Physical Exam Vital Signs Temp Pulse Resp BP 98.5 F 81 16 155/74 H 01/31/19 08:23 01/31/19 08:23 01/31/19 08:23 01/31/19 08:23 General: Alert, Oriented x3, Cooperative, No apparent distress HEENT: Atraumatic, Normocephalic Lungs: Normal air movement Psych/Mental Status: Normal Affect Assessment/Plan The patient appears to be tolerating hyperbaric oxygen therapy well, which will be continued as per the patient's medical plan.
[2019-01-31 10:10] LABS: Bedside Glucose 144 mg/dL (70-110)
[2019-02-01 07:46] LABS: Bedside Glucose 169 mg/dL (70-110)
[2019-02-01 08:19] VITALS: BP 160/81; BP 161/74; PULSE 81; RESP 16; TEMP 36.4; TEMP 36.8
--- NOTE | 2019-02-01 08:54 | PCM.HBO.PN ---
History of Present Illness Date of Service: 02/01/19 Presenting Chief Complaint: Chronic refractory osteomyelitis right foot/ankle. Recurrent diabetic foot ulcer. DEANGELO ROMERO is a 53 year old currently undergoing hyperbaric oxygen therapy for chronic osteomyelitis involving right ankle and right foot. Type 2 diabetes mellitus also complicates prognosis. Progress: Today is the 22nd session of 40 planned hyperbaric oxygen therapy sessions. Tolerance of hyperbaric oxygen therapy: Hyperbaric oxygen therapy was administered as per the facility's protocol. The patient tolerated hyperbaric oxygen therapy well, without complaints or complications. Upon emergence from the hyperbaric chamber, the patient's vital signs remained stable. He was discharged in good condition. See documented blood glucose levels. Past Medical History Chronic Problems Chronic osteomyelitis involving ankle and foot (Chronic) Allergies/Adverse Reactions: Allergies iodine Allergy (Verified 11/30/18 09:59) Other Home Medications: Ambulatory Orders Medication Instructions Recorded Amlodipine [Norvasc] 5 mg PO DAILY 11/30/18 Glimepiride [Amaryl] 4 mg PO TID 11/30/18 Losartan Potassium [Cozaar] 100 mg PO DAILY 11/30/18 Metformin HCl 500 mg PO TID 11/30/18 Smoking Status: Never smoker Tobacco Use: Non-smoker Physical Exam Vital Signs Temp Pulse Resp BP 98.2 F 81 16 161/74 H 02/01/19 08:19 02/01/19 08:19 02/01/19 08:19 02/01/19 08:19 General: Alert, Oriented x3, Cooperative, No apparent distress HEENT: Atraumatic, Normocephalic Lungs: Normal air movement Psych/Mental Status: Normal Affect Assessment/Plan The patient appears to be tolerating hyperbaric oxygen therapy well, which will be continued as per the patient's medical plan.
[2019-02-01 10:11] LABS: Bedside Glucose 140 mg/dL (70-110)
[2019-02-02 07:46] LABS: Bedside Glucose 199 mg/dL (70-110)
[2019-02-02 08:28] VITALS: BP 164/79; BP 164/82; PULSE 76; PULSE 89; RESP 16; TEMP 36.4; TEMP 36.8
[2019-02-02 10:01] LABS: Bedside Glucose 155 mg/dL (70-110)
--- NOTE | 2019-02-02 13:20 | PCM.HBO.PN ---
History of Present Illness Date of Service: 02/02/19 Presenting Chief Complaint: Chronic refractory osteomyelitis right foot/ankle. Recurrent diabetic foot ulcer. DEANGELO ROMERO is a 53 year old currently undergoing hyperbaric oxygen therapy for chronic osteomyelitis involving right ankle and right foot. Type 2 diabetes mellitus also complicates prognosis. Progress: Today is the 23rd session of 40 planned hyperbaric oxygen therapy sessions. Tolerance of hyperbaric oxygen therapy: Hyperbaric oxygen therapy was administered as per the facility's protocol. The patient tolerated hyperbaric oxygen therapy well, without complaints or complications. Upon emergence from the hyperbaric chamber, the patient's vital signs remained stable. He was discharged in good condition. See documented blood glucose levels. Past Medical History Chronic Problems Chronic osteomyelitis involving ankle and foot (Chronic) Allergies/Adverse Reactions: Allergies iodine Allergy (Verified 11/30/18 09:59) Other Home Medications: Ambulatory Orders Medication Instructions Recorded Amlodipine [Norvasc] 5 mg PO DAILY 11/30/18 Glimepiride [Amaryl] 4 mg PO TID 11/30/18 Losartan Potassium [Cozaar] 100 mg PO DAILY 11/30/18 Metformin HCl 500 mg PO TID 11/30/18 Smoking Status: Never smoker Tobacco Use: Non-smoker Alcohol: None Drugs: None Physical Exam Vital Signs Temp Pulse Resp BP 98.2 F 89 16 164/82 H 02/02/19 08:28 02/02/19 08:28 02/02/19 08:28 02/02/19 08:28 General: Alert, Oriented x3, Cooperative, No apparent distress Psych/Mental Status: Normal Affect, Appropriate Assessment/Plan Active Problems Chronic osteomyelitis involving ankle and foot (Chronic) Type 2 diabetes mellitus (Acute) Diabetic foot ulcer associated with type 2 diabetes mellitus (Acute) The patient appears to be tolerating hyperbaric oxygen therapy well, which will be continued as per the patient's medical plan.
[2019-02-05 07:45] LABS: Bedside Glucose 214 mg/dL (70-110)
[2019-02-05 08:35] LABS: Bedside Glucose 201 mg/dL (70-110)
[2019-02-05 09:14] VITALS: BP 153/81; BP 162/83; PULSE 85; PULSE 88; RESP 16; RESP 18; TEMP 36.5; TEMP 36.7
[2019-02-05 11:15] LABS: Bedside Glucose 178 mg/dL (70-110)
--- NOTE | 2019-02-05 12:43 | PCM.HBO.PN ---
History of Present Illness Date of Service: 02/05/19 Presenting Chief Complaint: Chronic refractory osteomyelitis right foot/ankle. Recurrent diabetic foot ulcer. DEANGELO ROMERO is a 53 year old currently undergoing hyperbaric oxygen therapy for chronic osteomyelitis involving right ankle and right foot. Type 2 diabetes mellitus also complicates prognosis. Progress: Today is the 24rd session of 40 planned hyperbaric oxygen therapy sessions. Tolerance of hyperbaric oxygen therapy: Hyperbaric oxygen therapy was administered as per the facility's protocol. The patient tolerated hyperbaric oxygen therapy well, without complaints or complications. Upon emergence from the hyperbaric chamber, the patient's vital signs remained stable. He was discharged in good condition. See documented blood glucose levels. Capacity - Capacity Assessment Tool Can the patient make a choice & communicate that choice?: Yes Can the patient understand benefits, risks and alternatives?: Yes Can the patient make a logical, rational choice?: Yes Is the choice the patient makes consistent w/ their values?: Yes Is there an impending, emergent risk to the patient?: Yes Past Medical History Chronic Problems Chronic osteomyelitis involving ankle and foot (Chronic) Allergies/Adverse Reactions: Allergies iodine Allergy (Verified 11/30/18 09:59) Other Home Medications: Ambulatory Orders Medication Instructions Recorded Amlodipine [Norvasc] 5 mg PO DAILY 11/30/18 Glimepiride [Amaryl] 4 mg PO TID 11/30/18 Losartan Potassium [Cozaar] 100 mg PO DAILY 11/30/18 Metformin HCl 500 mg PO TID 11/30/18 Smoking Status: Never smoker Tobacco Use: Non-smoker Alcohol: None Drugs: None Physical Exam Vital Signs Temp Pulse Resp BP 98.1 F 88 18 153/81 H 02/05/19 09:14 02/05/19 09:14 02/05/19 09:14 02/05/19 09:14 General: Alert, Oriented x3, Cooperative HEENT: Atraumatic, TM's Clear Lungs: Clear to auscultation, Normal air movement Cardiovascular: Regular rate, Regular Rhythm Psych/Mental Status: Normal Affect Assessment/Plan Active Problems Chronic osteomyelitis involving ankle and foot (Chronic) Type 2 diabetes mellitus (Acute) Diabetic foot ulcer associated with type 2 diabetes mellitus (Acute) 1. Chronic osteomyelitis involving ankle and foot 2. Type 2 diabetes mellitus 3. Diabetic foot ulcer associated with type 2 diabetes mellitus Code Visit [id number]
[2019-02-06 07:46] LABS: Bedside Glucose 216 mg/dL (70-110)
[2019-02-06 08:15] VITALS: BP 150/84; BP 162/74; PULSE 78; PULSE 90; RESP 16; TEMP 36.2; TEMP 36.7
[2019-02-06 10:06] LABS: Bedside Glucose 165 mg/dL (70-110)
--- NOTE | 2019-02-06 12:48 | PCM.HBO.PN ---
History of Present Illness Date of Service: 02/06/19 Presenting Chief Complaint: Chronic refractory osteomyelitis right foot/ankle. Recurrent diabetic foot ulcer. DEANGELO ROMERO is a 53 year old currently undergoing hyperbaric oxygen therapy for chronic osteomyelitis involving right ankle and right foot. Type 2 diabetes mellitus also complicates prognosis. Progress: Today is the 25th session of 40 planned hyperbaric oxygen therapy sessions. Tolerance of hyperbaric oxygen therapy: Hyperbaric oxygen therapy was administered as per the facility's protocol. The patient tolerated hyperbaric oxygen therapy well, without complaints or complications. Upon emergence from the hyperbaric chamber, the patient's vital signs remained stable. He was discharged in good condition. See documented blood glucose levels. Pretreatment blood sugar was 216. Posttreatment blood sugar was 165. The patient was treated at 2 rosetta for a total treatment length of 106 minutes. No air breaks were administered. Past Medical History Chronic Problems Chronic osteomyelitis involving ankle and foot (Chronic) Allergies/Adverse Reactions: Allergies iodine Allergy (Verified 11/30/18 09:59) Other Home Medications: Ambulatory Orders Medication Instructions Recorded Amlodipine [Norvasc] 5 mg PO DAILY 11/30/18 Glimepiride [Amaryl] 4 mg PO TID 11/30/18 Losartan Potassium [Cozaar] 100 mg PO DAILY 11/30/18 Metformin HCl 500 mg PO TID 11/30/18 Smoking Status: Never smoker Tobacco Use: Non-smoker Alcohol: None Drugs: None Physical Exam Vital Signs Temp Pulse Resp BP 98.0 F 90 16 150/84 H 02/06/19 08:15 02/06/19 08:15 02/06/19 08:15 02/06/19 08:15 General: Alert, Oriented x3, Cooperative, No apparent distress, Well developed, Well nourished HEENT: Atraumatic, PERRLA, EOMI, Normocephalic Lungs: Normal air movement Psych/Mental Status: Normal Affect, Appropriate, Alert and oriented to time, place, person, mood and affect Assessment/Plan Active Problems Chronic osteomyelitis involving ankle and foot (Chronic) Type 2 diabetes mellitus (Acute) Diabetic foot ulcer associated with type 2 diabetes mellitus (Acute) The patient appears to be tolerating hyperbaric oxygen therapy well, which will be continued as per the patient's medical plan.
[2019-02-07 07:46] LABS: Bedside Glucose 201 mg/dL (70-110)
--- NOTE | 2019-02-07 08:18 | PCM.HBO.PN ---
History of Present Illness Date of Service: 02/07/19 Presenting Chief Complaint: Chronic refractory osteomyelitis right foot/ankle. Recurrent diabetic foot ulcer. DEANGELO ROMERO is a 53 year old currently undergoing hyperbaric oxygen therapy for chronic osteomyelitis involving right ankle and right foot. Type 2 diabetes mellitus also complicates prognosis. Progress: Today is the 26th session of 40 planned hyperbaric oxygen therapy sessions. Tolerance of hyperbaric oxygen therapy: Hyperbaric oxygen therapy was administered as per the facility's protocol. The patient tolerated hyperbaric oxygen therapy well, without complaints or complications. Upon emergence from the hyperbaric chamber, the patient's vital signs remained stable. He was discharged in good condition. See documented blood glucose levels. No air breaks were administered. Past Medical History Chronic Problems Chronic osteomyelitis involving ankle and foot (Chronic) Allergies/Adverse Reactions: Allergies iodine Allergy (Verified 11/30/18 09:59) Other Home Medications: Ambulatory Orders Medication Instructions Recorded Amlodipine [Norvasc] 5 mg PO DAILY 11/30/18 Glimepiride [Amaryl] 4 mg PO TID 11/30/18 Losartan Potassium [Cozaar] 100 mg PO DAILY 11/30/18 Metformin HCl 500 mg PO TID 11/30/18 Smoking Status: Never smoker Tobacco Use: Non-smoker Alcohol: None Drugs: None Physical Exam Vital Signs Temp Pulse Resp BP 98.0 F 90 16 150/84 H 02/06/19 08:15 02/06/19 08:15 02/06/19 08:15 02/06/19 08:15 General: Alert, Oriented x3, Cooperative, No apparent distress HEENT: Atraumatic, TM's Clear Lungs: Clear to auscultation, Normal air movement Cardiovascular: Regular rate, Regular Rhythm Psych/Mental Status: Normal Affect, Appropriate, Alert and oriented to time, place, person, mood and affect Assessment/Plan Active Problems Chronic osteomyelitis involving ankle and foot (Chronic) Type 2 diabetes mellitus (Acute) Diabetic foot ulcer associated with type 2 diabetes mellitus (Acute) The patient appears to be tolerating hyperbaric oxygen therapy well, which will be continued as per the patient's medical plan.
[2019-02-07 08:19] VITALS: BP 165/75; BP 165/78; PULSE 77; PULSE 85; RESP 16; TEMP 36.5; TEMP 36.8
[2019-02-07 10:06] LABS: Bedside Glucose 170 mg/dL (70-110)
[2019-02-08 09:25] LABS: Bedside Glucose 299 mg/dL (70-110)
[2019-02-08 09:35] VITALS: BP 143/79; BP 156/74; PULSE 78; PULSE 81; RESP 16; TEMP 36.3; TEMP 36.7
--- NOTE | 2019-02-08 11:02 | PCM.HBO.PN ---
History of Present Illness Date of Service: 02/08/19 Presenting Chief Complaint: Chronic refractory osteomyelitis right foot/ankle. Recurrent diabetic foot ulcer. DEANGELO ROMERO is a 53 year old currently undergoing hyperbaric oxygen therapy for chronic osteomyelitis involving right ankle and right foot. Type 2 diabetes mellitus also complicates prognosis. Progress: Today is the 27th session of 40 planned hyperbaric oxygen therapy sessions. Tolerance of hyperbaric oxygen therapy: Hyperbaric oxygen therapy was administered as per the facility's protocol. The patient tolerated hyperbaric oxygen therapy well, without complaints or complications. Upon emergence from the hyperbaric chamber, the patient's vital signs remained stable. He was discharged in good condition. See documented blood glucose levels. No air breaks were administered. Past Medical History Chronic Problems Chronic osteomyelitis involving ankle and foot (Chronic) Allergies/Adverse Reactions: Allergies iodine Allergy (Verified 11/30/18 09:59) Other Home Medications: Ambulatory Orders Medication Instructions Recorded Amlodipine [Norvasc] 5 mg PO DAILY 11/30/18 Glimepiride [Amaryl] 4 mg PO TID 11/30/18 Losartan Potassium [Cozaar] 100 mg PO DAILY 11/30/18 Metformin HCl 500 mg PO TID 11/30/18 Smoking Status: Never smoker Tobacco Use: Non-smoker Alcohol: None Drugs: None Physical Exam Vital Signs Temp Pulse Resp BP 98.1 F 81 16 143/79 H 02/08/19 09:35 02/08/19 09:35 02/08/19 09:35 02/08/19 09:35 General: Alert, Oriented x3, Cooperative, No apparent distress HEENT: Atraumatic, Normocephalic Lungs: Normal air movement Psych/Mental Status: Normal Affect Assessment/Plan Active Problems Chronic osteomyelitis involving ankle and foot (Chronic) Type 2 diabetes mellitus (Acute) Diabetic foot ulcer associated with type 2 diabetes mellitus (Acute) The patient appears to be tolerating hyperbaric oxygen therapy well, which will be continued as per the patient's medical plan.
[2019-02-08 11:20] LABS: Bedside Glucose 191 mg/dL (70-110)
[2019-02-08 15:50] LABS: Bedside Glucose 254 mg/dL (70-110)
[2019-02-08 15:50] LABS: Bedside Glucose 256 mg/dL (70-110)
[2019-02-08 15:50] LABS: Bedside Glucose 231 mg/dL (70-110)
[2019-02-09 07:40] LABS: Bedside Glucose 234 mg/dL (70-110)
[2019-02-09 08:36] VITALS: BP 150/79; BP 164/80; PULSE 78; PULSE 81; RESP 16; TEMP 36.2; TEMP 36.8
[2019-02-09 10:01] LABS: Bedside Glucose 182 mg/dL (70-110)
--- NOTE | 2019-02-09 12:01 | PCM.HBO.PN ---
History of Present Illness Date of Service: 02/09/19 Presenting Chief Complaint: Chronic refractory osteomyelitis right foot/ankle. Recurrent diabetic foot ulcer. DEANGELO ROMERO is a 53 year old currently undergoing hyperbaric oxygen therapy for chronic osteomyelitis involving right ankle and right foot. Type 2 diabetes mellitus also complicates prognosis. Progress: Today is the 28th session of 40 planned hyperbaric oxygen therapy sessions. Tolerance of hyperbaric oxygen therapy: Hyperbaric oxygen therapy was administered as per the facility's protocol. The patient tolerated hyperbaric oxygen therapy well, but did not finish the full treatment due to an another appointment, without complaints or complications. Upon emergence from the hyperbaric chamber, the patient's vital signs remained stable. He was discharged in good condition. See documented blood glucose levels. No air breaks were administered. Past Medical History Chronic Problems Chronic osteomyelitis involving ankle and foot (Chronic) Allergies/Adverse Reactions: Allergies iodine Allergy (Verified 11/30/18 09:59) Other Home Medications: Ambulatory Orders Medication Instructions Recorded Amlodipine [Norvasc] 5 mg PO DAILY 11/30/18 Glimepiride [Amaryl] 4 mg PO TID 11/30/18 Losartan Potassium [Cozaar] 100 mg PO DAILY 11/30/18 Metformin HCl 500 mg PO TID 11/30/18 Smoking Status: Never smoker Tobacco Use: Non-smoker Alcohol: None Drugs: None Physical Exam Vital Signs Temp Pulse Resp BP 98.3 F 81 16 150/79 H 02/09/19 08:36 02/09/19 08:36 02/09/19 08:36 02/09/19 08:36 Assessment/Plan Active Problems Chronic osteomyelitis involving ankle and foot (Chronic) Type 2 diabetes mellitus (Acute) Diabetic foot ulcer associated with type 2 diabetes mellitus (Acute) The patient appears to be tolerating hyperbaric oxygen therapy well, which will be continued as per the patient's medical plan.
[2019-02-12 08:30] VITALS: BP 148/75; BP 155/77; PULSE 80; PULSE 92; RESP 16; TEMP 36.7; TEMP 36.8
[2019-02-12 08:30] LABS: Bedside Glucose 187 mg/dL (70-110)
[2019-02-12 10:21] LABS: Bedside Glucose 198 mg/dL (70-110)
[2019-02-13 08:05] LABS: Bedside Glucose 196 mg/dL (70-110)
[2019-02-13 08:09] VITALS: BP 152/76; BP 156/70; PULSE 80; PULSE 83; RESP 16; TEMP 36.2; TEMP 36.3
[2019-02-13 09:56] LABS: Bedside Glucose 169 mg/dL (70-110)
--- NOTE | 2019-02-13 13:19 | PCM.HBO.PN ---
History of Present Illness Date of Service: 02/13/19 Presenting Chief Complaint: Chronic refractory osteomyelitis right foot/ankle. Recurrent diabetic foot ulcer. DEANGELO ROMERO is a 53 year old currently undergoing hyperbaric oxygen therapy for chronic osteomyelitis involving right ankle and right foot. Type 2 diabetes mellitus also complicates prognosis. Progress: Today is the 30th session of 40 planned hyperbaric oxygen therapy sessions. Tolerance of hyperbaric oxygen therapy: Hyperbaric oxygen therapy was administered as per the facility's protocol. The patient tolerated hyperbaric oxygen therapy well, without complaints or complications. Upon emergence from the hyperbaric chamber, the patient's vital signs remained stable. He was discharged in good condition. See documented blood glucose levels. No air breaks were administered. The hyperbaric oxygen therapy session was to a depth of 2 rosetta. Total treatment time was 106 minutes. The pretreatment blood sugar is 196. The posttreatment blood sugar was 169. Past Medical History Chronic Problems Chronic osteomyelitis involving ankle and foot (Chronic) Allergies/Adverse Reactions: Allergies iodine Allergy (Verified 11/30/18 09:59) Other Home Medications: Ambulatory Orders Medication Instructions Recorded Amlodipine [Norvasc] 5 mg PO DAILY 11/30/18 Glimepiride [Amaryl] 4 mg PO TID 11/30/18 Losartan Potassium [Cozaar] 100 mg PO DAILY 11/30/18 Metformin HCl 500 mg PO TID 11/30/18 Smoking Status: Never smoker Tobacco Use: Non-smoker Alcohol: None Drugs: None Physical Exam Vital Signs Temp Pulse Resp BP 97.2 F L 83 16 152/76 H 02/13/19 08:09 02/13/19 08:09 02/13/19 08:09 02/13/19 08:09 General: Alert, Oriented x3, Cooperative, No apparent distress, Well developed, Well nourished HEENT: Atraumatic, PERRLA, EOMI, Normocephalic Lungs: Normal air movement Psych/Mental Status: Normal Affect, Appropriate, Alert and oriented to time, place, person, mood and affect Assessment/Plan Active Problems Chronic osteomyelitis involving ankle and foot (Chronic) Type 2 diabetes mellitus (Acute) Diabetic foot ulcer associated with type 2 diabetes mellitus (Acute) The patient appears to be tolerating hyperbaric oxygen therapy well, which will be continued as per the patient's medical plan.
== END 2019-02-14 23:59 ==
LOC: WC 08:00
PROVIDERS: Family Provider Family Medicine; PCP Family Medicine; Visit Provider Internal Medicine
DX: E11.621 Type 2 diabetes mellitus with foot ulcer (principal); E11.69 Type 2 diabetes mellitus with other specified complication; M86.671 Other chronic osteomyelitis, right ankle and foot; L97.519 Non-pressure chronic ulcer of other part of right foot with unspecified severity
CPT/HCPCS: 82962; 99183; G0277